=== PATIENT | female | born 1950 | race Caucasian/White ===

== ENCOUNTER → 2016-09-03 | Outpatient (CLI) | payer MEDICARE, OTHER ==
[~2016-09-03] MED LIST: ACETAMINOPHEN650 M1 PO; ALLEGRA ALLERG180 MG PO; ALLEGRA PO; ALPRAZOLAM PO; ALPRAZOLAM0.25 MG PO; AMITRYPTYLINE PO; ASPIR-TRIN325 MG PO; ASPIRIN EC81 M1 PO; ASPIRINEC PO; AVAPRO PO; BISOPROLOL/HCTZ1 TA3 PO; CELEXA PO; CELEXA20 MG PO; COATED ASPIRIN325 M1 PO; COLACE PO; COMBIVENT U/D3 M1 INH; FERRO-TIME325 MG PO; HYDROCODON-ACE1 EAC5 PO; HYDROCODON-ACE1 EACH PO; IBUPROFEN PO; IMDUR-ER30 M1 PO; IMDUR-ER30 MG PO; IRON325 ( 652 PO; LIDODERM30 EA TOP; LIPITOR40 MG PO; LISINOPRIL20 MG PO; LOPRESSOR PO; METOPROLOL TAR25 MG PO; MIRALAX; MIRALAX17 GM PO; NITROGLYCERIN0.4 MG SL; NITROGLYGERIN0.4 MG PO; NORVASC PO; OXYGEN; PANTOPRAZOLE SO40 MG PO; PLAQUENIL200 MG PO; PLAVIX PO; PROTONIX PO; REGLAN5 MG PO; SIMVASTATIN40 MG PO; STOOL SOFTENER; STOOL SOFTENER100 M1 PO; TOPROL XL 50 MG50 M1 PO; VICODIN PO; ZESTRIL40 MG PO; ZYRTEC PO; [UNRECOGNIZED DRUG - OTHER]
--- NOTE | ~2016-09-03 | CT55 ---
[facility] A Service of [facility] & [facility] RADIOLOGY TEXT RESULTS PATIENT: JULIÁN TURNER LOCATION: [facility] : 52 UNIT #: [id number] AGE: [address]: Janelle Coleman MD SEX: F ORDER DR: [id number] [facility] [address] [place], [place] [address] [id number] O MR#: [id number] Acc #: [id number] NAME: JULIÁN TURNER. : 1950 SEX: F STUDY DATE/TIME: 09/03/2016 15:33 UNIT: CCAT ROOM: STUDY DESCRIPTION: CT Chest W Con Attending Physician: Janelle Coleman M.D., Ph.D. Referring Physician: Janelle Coleman M.D., Ph.D. Ordering Physician: Janelle Coleman M.D., Ph.D. Primary Care Physician: Pan Brink M.D. MEDICAL IMAGING REPORT This report is preliminary unless electronic signature is present EXAM Chest CT 09/03 INDICATIONS Lung cancer. Observation for malignant neoplasm. Left laminectomy 2011. Restaging. TECHNIQUE Axial images were obtained through the chest following IV contrast administration. Multiplanar reformats were obtained. This CT exam was performed with one or more of the following radiation dose reduction techniques: automatic exposure control, adjustment of mA and/or kV according to patient size, and iterative reconstruction. COMPARISON STUDIES Comparison made with 10/04/2015. FINDINGS Patient is status post left pneumonectomy. The right lung is clear. There is atherosclerotic disease and coronary artery disease. No adenopathy. Continuation through the upper abdomen is remarkable only for atherosclerotic disease. No suspicious osseous lesions. IMPRESSION Left pneumonectomy. No evidence of recurrent or metastatic disease. Dictated by... Lion Marino Jr., M.D. [facility] A Service [facility] & [facility] RADIOLOGY TEXT RESULTS PATIENT: JULIÁN TURNER LOCATION: [facility] : 52 UNIT #: [id number] AGE: [address]: Janelle Coleman MD SEX: F ORDER DR: THIS IS AN ELECTRONICALLY VERIFIED REPORT Lion Marino Jr., M.D. at 09/04/2016 6:32 AM JOSEK/alejandro TD: 09/03/2016 21:16 JOB #: [id number] MEDICAL IMAGING REPORT COPY
[2016-09-03 15:30] LABS: POC - CREATININE 0.73 mg/dL (0.44-1.03); POC - GFR >60.0 mL/min (>60)
== END | disposition home or self-care (01) ==
LOC: CCAT 14:56
PROVIDERS: Internal Medicine Hematology & Oncology
DX: C34.12 Malignant neoplasm of upper lobe, left bronchus or lung (principal); Z90.2 Acquired absence of lung [part of]
CPT/HCPCS: 71260; 82565; Q9967

== ENCOUNTER → 2016-09-14 | Outpatient (CLI) | payer MEDICARE, OTHER ==
--- NOTE | ~2016-09-14 | US37 ---
[facility] A Service of [facility] & [facility] RADIOLOGY TEXT RESULTS PATIENT: JULIÁN TURNER LOCATION: [facility] : 52 UNIT #: [id number] AGE: [address]: Pan Brink MD SEX: F ORDER DR: [id number] [facility] [address] [place], [place] [address] [id number] O MR#: [id number] [facility] #: [id number] NAME: JULIÁN TURNER. : 1950 SEX: F STUDY DATE/TIME: 09/14/2016 13:58 UNIT: CNIV ROOM: STUDY DESCRIPTION: US Carotid W/Doppler Bilateral Attending Physician: Pan Brink M.D. Referring Physician: Pan Brink M.D. Ordering Physician: Pan Brink M.D. Primary Care Physician: Pan Brink M.D. MEDICAL IMAGING REPORT This report is preliminary unless electronic signature is present EXAM Carotid Doppler INDICATIONS Carotid bruit. This was apparently noted bilaterally last week. Patient also reports dizziness for 3 weeks. FINDINGS Bilateral carotid ultrasound examination was performed using morrison-scale spectral Doppler and color-flow Doppler imaging carotid flow was assessed using standards based on NASCET methodology. Ultrasound examination of the carotid arteries show extensive plaque noted within the common carotid arteries bilaterally, additional significant plaque is noted within the carotid bulbs bilaterally, and extending into the internal and external carotid arteries. Doppler evaluation shows elevated peak systolic flow velocity in the left internal carotid artery measuring up to 168 cm/sec indicating a flow-limiting stenosis of 50-69%. There is no evidence of significant carotid stenosis on the right based upon velocities, internal carotid peak systolic flow velocity on the right measures up to 100 cm/sec. Both vertebral arteries are patent with normal antegrade flow. IMPRESSION 1. Patient has of 50-69% stenosis of the left internal carotid artery, as well as mild right carotid disease, patient is noted to have significant atherosclerotic plaque involving the common carotid arteries as well, this is also seen on today's CT of the chest with contrast. Findings would be better assessed with CT angiography of the head and neck. 2. Both vertebral arteries are patent with normal antegrade flow Dictated by... [facility]. [facility] A Service of [facility] & [facility] RADIOLOGY TEXT RESULTS PATIENT: JULIÁN TURNER LOCATION: [facility] : 52 UNIT #: [id number] AGE: [address]: Pan Brink MD SEX: F ORDER DR: Janki Gann M.D. THIS IS AN ELECTRONICALLY VERIFIED REPORT Janki Gann M.D. at 09/20/2016 1:16 PM AFF/rnr TD: 09/15/2016 03:39 JOB #: [id number] MEDICAL IMAGING REPORT COPY
== END | disposition home or self-care (01) ==
LOC: CNIV 13:31
DX: R09.89 Other specified symptoms and signs involving the circulatory and respiratory systems (principal); I65.23 Occlusion and stenosis of bilateral carotid arteries
CPT/HCPCS: 93880